=== PATIENT | female | born 1995 | race Caucasian/White ===

== ENCOUNTER 2018-10-05 10:41 | Emergency (ER) | payer SELFPAY ==
[2018-10-05] MEDS ORDERED: Cephalexin 500 MG CAP ONE (10:57)
[2018-10-05] MEDS ORDERED: Dexamethasone 4 MG TAB ONE (10:57)
== END 2018-10-05 10:58 | disposition home or self-care (01) ==
LOC: BURERS 10:41
DX: J02.9 Acute pharyngitis, unspecified (principal); F17.210 Nicotine dependence, cigarettes, uncomplicated
CPT/HCPCS: 99282; J8540